=== PATIENT | female | born 1950 | race Two or more races ===

== ENCOUNTER 2020-11-03 09:50 | Emergency (ER) | payer BC, OTHER ==
[2020-11-03 10:01] VITALS: BMI 29.5
[2020-11-03 10:50] LABS: BASO % 1.3 % (0-2.0); EOS % 2.2 % (0-4.5); HEMATOCRIT 48.1 % (32.4-45.2); HEMOGLOBIN 15.9 GM/dl (10.7-15.3); LYMPH % 26.4 % (8-40); MCH 32.6 pg (25.7-33.7); MCHC 33.2 g/dl (32.0-36.0); MEAN CELL VOLUME 98.4 fl (80-96); MEAN PLT VOLUME 8.9 fl (7.5-11.1); MONO % 6.5 % (3.8-10.2); NEUT % 63.6 % (42.8-82.8); PLATELET COUNT 276 K/MM3 (134-434); RBC 4.89 M/mm3 (3.60-5.2); RDW 11.8 % (11.6-15.6); WHITE BLOOD COUNT 7.7 K/mm3 (4.0-10.8)
[2020-11-03 10:52] LABS: EPITHELIAL CELLS RARE /hpf
[2020-11-03 11:27] LABS: ALBUMIN 3.7 g/dl (3.4-5.0); BILIRUBIN,TOTAL 0.5 mg/dl (0.2-1); CALCIUM 8.6 mg/dl (8.5-10); CREATININE 0.9 mg/dl (0.55-1.3); TOT PROT 6.1 g/dl (6.4-8.2)
[2020-11-03 12:06] VITALS: BP 141/97; PULSE 63; TEMP 97.8
== END 2020-11-03 12:24 | disposition home or self-care (01) ==
LOC: FER 09:50
DX: N20.0 Calculus of kidney (principal)
CPT/HCPCS: 36415; 74176-TC; 80053; 81003; 81015; 85025; 87086; 99284-25

== ENCOUNTER 2021-05-08 07:05 | Emergency (ER) | payer BC ==
[2021-05-08] MEDS ORDERED: DIPHTH,PERTUSS(ACELL),TET 0.5 ML DISP.SYRIN IM ONE ×2 (07:44→07:46)
[2021-05-08 08:07] VITALS: BP 133/78; PULSE 81; TEMP 98
== END 2021-05-08 08:25 | disposition home or self-care (01) ==
LOC: FER 07:05
PROC: 0HQFXZZ Repair Right Hand Skin, External Approach (ICD-10-PCS; principal; 2021-05-08)
PROC: 2W3GX1Z Immobilization of Right Thumb using Splint (ICD-10-PCS; 2021-05-08)
PROC: 3E0234Z Introduction of Serum, Toxoid and Vaccine into Muscle, Percutaneous Approach (ICD-10-PCS; 2021-05-08)
DX: S61.011A Laceration without foreign body of right thumb without damage to nail, initial encounter (principal); W31.2XXA Contact with powered woodworking and forming machines, initial encounter
CPT/HCPCS: 90715; 99284-25

== ENCOUNTER 2021-05-18 06:50 | Emergency (ER) | payer BC ==
[2021-05-18 06:55] VITALS: BP 150/96; PULSE 73; TEMP 98.3; BMI 29.5
== END 2021-05-18 07:01 | disposition home or self-care (01) ==
LOC: FER 06:50
DX: S61.011A Laceration without foreign body of right thumb without damage to nail, initial encounter (principal); W31.2XXA Contact with powered woodworking and forming machines, initial encounter; Z48.02 Encounter for removal of sutures
CPT/HCPCS: 99281-25